=== PATIENT | male | born 1970 | race Caucasian/White ===

== ENCOUNTER 2021-02-07 18:28 | Emergency (ER) | payer MEDICARE ==
--- NOTE | 2021-02-07 18:57 | ERPHSYRPT ---
- History of Present Illness Source: patient Exam Limitations: other (Poor historian) Patient Subjective Stated Complaint: SOB Triage Nursing Assessment: Patient brought back to ED via w/c and transferred self to bed. Patient A+O X 3. Patient's skin pink, warm and dry. Patient complains of SOB, vomiting, cough and headache for one week. Patient's lungs clear a/p brice. Physician History: 50 yo wm w productive cough x9 days. Pt has had nausea wo vomiting/fever/diarrhea/melena/hematochezia. He has some mid-sternal chest pain which is worse w deep breaths. Timing/Duration: other (9days) Cough Quality/Degree: productive cough Possible Cause: occasional episodes Modifying Factors: Improves With: coughing Associated Symptoms: chest pain/soreness, cough, nasal congestion, shortness of breath, No fever, No chills, No dizziness, No earache, No facial pain, No headache, No lightheadedness, No muscle aches, No nasal drainage, No sinus infection, No sore throat, No wheezing Allergies/Adverse Reactions: codeine Allergy (Severe, Verified 02/07/21 18:30) Hives naproxen Allergy (Intermediate, Verified 02/07/21 18:30) Rash aspirin Adverse Reaction (Verified 02/07/21 18:30) Home Medications: Propranolol HCl [Propranolol HCl ER] 120 mg PO DAILY 05/12/16 [History] SUMAtriptan succinate [Imitrex] 100 mg PO UD 05/12/16 [History] Hx Tetanus, Diphtheria Vaccination/Date Given: Yes (2011) Hx Influenza Vaccination/Date Given: No Hx Pneumococcal Vaccination/Date Given: No Immunizations Up to Date: Yes Travel Risk - International Travel Have you traveled outside of the country in past 3 weeks: No - Coronavirus Screening Are you exhibiting any of the following symptoms?: Yes Symptoms: Cough: New Onset, Shortness of Breath Close contact with a COVID-19 positive Pt in past 14-21 Days: No - Vaccine Status Have you recieved a Covid-19 vaccination: Yes [employer] Inspector: Moderna - Vaccination Dates Date of 2cond Vaccination (if applicable): n/a - Review of Systems Constitutional: No Symptoms, Fatigue, Lethargy Eyes: No Symptoms Ears, Nose, & Throat: No Symptoms, Nose Congestion, Nose Discharge Respiratory: No Symptoms, Cough, Dyspnea on Exertion ([place]) Cardiac: No Symptoms, Chest Pain Abdominal/Gastrointestinal: No Symptoms, Nausea Genitourinary Symptoms: No Symptoms Musculoskeletal: No Symptoms Skin: No Symptoms Neurological: No Symptoms Psychological: No Symptoms Endocrine: No Symptoms Hematologic/Lymphatic: No Symptoms Immunological/Allergic: No Symptoms - Past Medical History Pertinent Past Medical History: Yes Cardiac History: Hypertension, Other Musculoskeletal History: Other Other Medical History: sciatica - Past Surgical History Past Surgical History: No - Social History Smoking Status: Never smoker Exposure to second hand smoke: No Drug Use: none Patient Lives Alone: No Significant Family History: no pertinent family hx - Nursing Vital Signs Nursing Vital Signs: Initial Vital Signs Temperature 98.4 F 02/07/21 18:32 Pulse Rate 95 H 02/07/21 18:32 Respiratory Rate 14 02/07/21 18:32 Blood Pressure 151/110 02/07/21 18:32 O2 Sat by Pulse Oximetry 99 02/07/21 18:32 Pain Scale Pain Intensity 0 - Physical Exam General Appearance: no apparent distress Eye Exam: PERRL/EOMI, eyes nml inspection Ears, Nose, Throat Exam: normal ENT inspection, TMs normal, pharynx normal, moist mucous membranes Neck Exam: normal inspection, non-tender, supple, full range of motion, No meningismus, No mass, No Brudzinski, No Kernig's Respiratory Exam: normal breath sounds, lungs clear, airway intact, No chest tenderness, No respiratory distress Cardiovascular Exam: tachycardia (Mild), No murmur Gastrointestinal/Abdomen Exam: soft, normal bowel sounds, No tenderness, No distention Back Exam: normal inspection, normal range of motion, No CVA tenderness, No vertebral tenderness Extremity Exam: normal inspection, normal range of motion Neurologic Exam: alert, oriented x 3, cooperative, equal opportunity director II-XII nml as tested, normal mood/affect, nml cerebellar function, nml station & gait, sensation nml, No motor deficits, No sensory deficit Skin Exam: normal color Lymphatic Exam: adenopathy SpO2 Interpretation: normal SpO2: 99 O2 Delivery: Room Air - Course EKG Interpreted by Me: RATE (NSR/R95/Twave inversion V3-V5/ST depression V3- V5/Normal QT-QTc) - Radiology Exams Chest X-ray Interpretation: Interpreted by me (CXR-Nothing acute) - CT Exams Chest CT Interpretation: Discussed w/radiologist (B patchy airspace opacities) Ordered Tests: Active Orders 24 hr Category Date Time Status EKG-ER Only STAT Care 02/07/21 18:51 Completed IV Insertion STAT Care 02/07/21 18:51 Completed CHEST 1 VIEW (PORTABLE) Stat Exams 02/07/21 18:51 Taken CHEST WITHOUT CONTRAST [CT] Stat Exams 02/07/21 19:28 Taken CBC W DIFF Stat Lab 02/07/21 18:45 Completed CMP Stat Lab 02/07/21 18:45 Completed D-DIMER QUANTITATIVE Stat Lab 02/07/21 18:45 Completed NT PRO BNP Stat Lab 02/07/21 18:45 Completed PROTIME WITH INR Stat Lab 02/07/21 18:45 Completed PTT Stat Lab 02/07/21 18:45 Completed TROPONIN Q3H Lab 02/07/21 18:45 Completed TROPONIN Q3H Lab 02/07/21 20:54 Completed Medication Summary Discontinued Medications Generic Name Dose Route Start Last Admin Trade Name Freq PRN Reason Stop Dose Admin Potassium Chloride 40 meq 02/07/21 20:19 02/07/21 20:22 Klor Con 10 Meq PO 02/07/21 20:20 40 meq STAT ONE Administration Potassium Chloride Confirm 02/07/21 20:22 Klor Con 10 Meq Administered 02/07/21 20:23 Dose 40 meq PO .STK-MED ONE Lab/Rad Data: Laboratory Result Diagrams 02/07/21 18:45 02/07/21 18:45 Laboratory Results 02/07/21 02/07/21 02/07/21 Range/Units 20:54 18:45 18:45 WBC (4.0-10.5) K/mm3 RBC (4.1-5.6) M/mm3 Hgb (12.5-18.0) gm/dl Hct (42-50) % MCV (78-100) fl MCH (26-32) pg MCHC (32-36) g/dl RDW (11.5-14.0) % Plt Count (150-450) K/mm3 MPV (7.5-11.0) fl Gran % (36.0-66.0) % Eos # (Auto) (0-0.5) Absolute Lymphs (auto) (1.0-4.6) Absolute Monos (auto) (0.0-1.3) Lymphocytes % (24.0-44.0) % Monocytes % (0.0-12.0) % Eosinophils % (0.00-5.0) % Basophils % (0.0-0.4) % Absolute Granulocytes (1.4-6.9) Basophils # (0-0.4) PT 12.9 H (8.83-12.87) SECONDS INR 1.14 (0.8-3.0) APTT 28.3 (24.1-36.1) SECONDS D-Dimer 426 (215-500) ng/mL Sodium (137-145) mmol/L Potassium (3.5-5.1) mmol/L Chloride (98-107) mmol/L Carbon Dioxide (22-30) mmol/L Anion Gap (5-15) MEQ/L BUN (9-20) mg/dL Creatinine (0.66-1.25) mg/dL Estimated GFR ML/MIN Glucose (74-106) mg/dL Calcium (8.4-10.2) mg/dL Total Bilirubin (0.2-1.3) mg/dL AST (17-59) U/L ALT (0-50) U/L Alkaline Phosphatase (38-126) U/L Troponin I < 0.012 < 0.012 (0.000-0.034) ng/mL NT-Pro-B Natriuret Pep (0-450) pg/mL Serum Total Protein (6.3-8.2) g/dL Albumin (3.5-5.0) g/dL Slides for Path Review 02/07/21 02/07/21 Range/Units 18:45 18:45 WBC 6.7 (4.0-10.5) K/mm3 RBC 4.94 (4.1-5.6) M/mm3 Hgb 16.1 (12.5-18.0) gm/dl Hct 43.6 (42-50) % MCV 88.3 (78-100) fl MCH 32.6 H (26-32) pg MCHC 36.9 H (32-36) g/dl RDW 13.2 (11.5-14.0) % Plt Count 127 L (150-450) K/mm3 MPV 11.1 H (7.5-11.0) fl Gran % 70.4 H (36.0-66.0) % Eos # (Auto) 0.03 (0-0.5) Absolute Lymphs (auto) 1.48 (1.0-4.6) Absolute Monos (auto) 0.48 (0.0-1.3) Lymphocytes % 22.0 L (24.0-44.0) % Monocytes % 7.1 (0.0-12.0) % Eosinophils % 0.4 (0.00-5.0) % Basophils % 0.1 (0.0-0.4) % Absolute Granulocytes 4.74 (1.4-6.9) Basophils # 0.01 (0-0.4) PT (8.83-12.87) SECONDS INR (0.8-3.0) APTT (24.1-36.1) SECONDS D-Dimer (215-500) ng/mL Sodium 138 (137-145) mmol/L Potassium 2.9 L* (3.5-5.1) mmol/L Chloride 108 H (98-107) mmol/L Carbon Dioxide 20 L (22-30) mmol/L Anion Gap 13.6 (5-15) MEQ/L BUN 7 L (9-20) mg/dL Creatinine 1.36 H (0.66-1.25) mg/dL Estimated GFR 59.4 ML/MIN Glucose 119 H (74-106) mg/dL Calcium 9.3 (8.4-10.2) mg/dL Total Bilirubin 0.90 (0.2-1.3) mg/dL AST 59 (17-59) U/L ALT 57 H (0-50) U/L Alkaline Phosphatase 123 (38-126) U/L Troponin I (0.000-0.034) ng/mL NT-Pro-B Natriuret Pep 36.8 (0-450) pg/mL Serum Total Protein 7.3 (6.3-8.2) g/dL Albumin 4.3 (3.5-5.0) g/dL Slides for Path Review YES - Progress Progress: improved Progress Note: 02/07/21 21:25 Pt most likely has CV19 but unable to do rapid test since pt not requiring admission. Will do send out CV19 test and start doxycycline until CV19 test is back. Counseled pt/family regarding: lab results, diagnosis, need for follow-up, rad results - Departure Departure Disposition: Home Clinical Impression: COVID-19 determined by clinical diagnostic criteria, Hypokalemia Condition: Stable Critical Care Time: No Referrals: BOYD TIMMONS [Primary Care Provider] - Instructions: Shortness of Breath (Dyspnea) (DC) Additional Instructions: Follow up with family MD in 1-2 days Start vitaminD 10,000 units daily Get a pulse oximeter and monitor oxygen saturation 2-3 times a day. Return to ER if saturation consistently below 92% Start doxycycline and stop if Covid19 test negative Prescriptions: Doxycycline Monohydrate 100 mg PO BID 10 Days #20 tablet Potassium Chloride [Klor-Con M20] 40 meq PO BID 7 Days #14 [email or web address]
[2021-02-07 19:00] LABS: Absolute Neutrophil Ct (ANC) 4.74 (1.4-6.9); BASOPHIL % 0.1 % (0.0-0.4); Basophil (Absolute #) 0.01 (0-0.4); Eosinophil % 0.4 % (0.00-5.0); Eosinophil (Absolute #) 0.03 (0-0.5); Hematocrit 43.6 % (42-50); Hemoglobin 16.1 gm/dl (12.5-18.0); INR 1.14 (0.8-3.0); Lymphocyte (Absolute #) 1.48 (1.0-4.6); Mean Cell Volume 88.3 fl (78-100); Mean Corpuscular Hemoglobin 32.6 pg (26-32); Mean Corpuscular Hgb Concent. 36.9 g/dl (32-36); Mean Platelet Volume 11.1 fl (7.5-11.0); Monocyte (Absolute #) 0.48 (0.0-1.3); Monocytes % 7.1 % (0.0-12.0); Neutrophil % 70.4 % (36.0-66.0); PROTIME 12.9 SECONDS (8.83-12.87); Platelet Count 127 K/mm3 (150-450); Red Blood Count 4.94 M/mm3 (4.1-5.6); Red Cell Distribution Width 13.2 % (11.5-14.0); White Blood Count 6.7 K/mm3 (4.0-10.5)
[2021-02-07 19:03] LABS: PTT 28.3 SECONDS (24.1-36.1)
[2021-02-07 19:13] LABS: ALBUMIN 4.3 g/dL (3.5-5.0); ANION GAP 13.6 MEQ/L (5-15); BILIRUBIN,TOTAL 0.9 mg/dL (0.2-1.3); Calcium 9.3 mg/dL (8.4-10.2); Creatinine 1 1.36 mg/dL (0.66-1.25); EST GLOMERULAR FILTRATION RATE 59.4 ML/MIN; NT PRO BNP 36.8 pg/mL (0-450); Total Protein 7.3 g/dL (6.3-8.2)
[2021-02-07 19:18] LABS: Potassium 2.9 mmol/L (3.5-5.1)
[2021-02-07] MEDS ORDERED: Klor Con 10 MEQ PO ONE ×2 (20:19→20:22)
[2021-02-07 20:24] VITALS: O2SAT 99
[2021-02-07 21:31] VITALS: BP 133/91; PULSE 95
[2021-02-07 22:05] LABS: Slide Review 1 YES
--- NOTE | 2021-02-08 08:41 | XRAY ---
Indication: Cough 9 days. Comparison: None Portable chest demonstrates right infrahilar airspace opacity without consolidation/large effusion. Remaining part, left lung, and bony thorax normal. Comment: Right lung opacity not reported by interpreting ER clinician.
--- NOTE | 2021-02-08 08:43 | XRAY ---
Indication: Chest pain, dyspnea, nausea, vomiting, bodyaches, and headaches 9 days. Multiple contiguous axial images obtained through the chest without contrast. Comparison: None Lungs demonstrate mild patchy bilateral peripheral round airspace opacities greatest in the right lower lobe. No consolidation or effusion. Heart is not enlarged. Aorta is normal in course and caliber. No pathologic mediastinal lymphadenopathy. Bony thorax intact. Limited upper abdomen demonstrates 1.5 cm right upper renal cortical cyst and cholecystectomy clips. Impression: 1. Bilateral peripheral round airspace opacities. Commonly reported imaging features of Covid 19 pneumonia are present. Other processes such as influenza pneumonia and organizing pneumonia, as can be seen with drug toxicity and connective tissue disease, can cause a similar imaging pattern. 2. Right renal cyst.
== END 2021-02-07 21:50 | disposition home or self-care (01) ==
LOC: ED 18:28
DX: U07.1 COVID-19 (principal); E87.6 Hypokalemia
CPT/HCPCS: 36000; 36415; 71045; 71250; 80053; 83880; 84484; 85025; 85379; 85610; 85730; 93005; 99284; U0003; A9270-GY

== ENCOUNTER 2023-02-13 08:45 | Day surgery (SDC) | payer MEDICARE ==
[2023-02-13] MEDS ORDERED: LIDOCAINE HCL 1% 50 MG/5 ML VL PF IJ ONE (08:46)
[2023-02-13] MEDS ORDERED: Depo-Medrol 40 MG/ML IM ONE (08:46)
[2023-02-13] MEDS ORDERED: Sodium Chloride 0.9(Preservative Free) 10 ML IJ ONE (08:46)
[2023-02-13] MEDS ORDERED: Versed 2 MG/2 ML Injection ONE ×2 (10:15→10:17)
--- NOTE | 2023-02-13 12:28 | XRAY ---
Indication: Lumbar RENY. Intraoperative fluoroscopy provided for 19 seconds. 2 digital spot images submitted for interpretation demonstrates posterior needle tip projecting just posterior to presumed L3-L4 interspace. Small amount of contrast injected for needle tip placement. Correlate with intraoperative findings/report.
--- NOTE | 2023-02-13 12:40 | XRAY ---
19 seconds of fluoroscopy was used in surgery for a lumbar RENY.
[2023-02-13] MEDS ORDERED: Lactated Ringers 1,000 ML IV ONE (13:52)
== END 2023-02-13 10:45 | disposition home or self-care (01) ==
LOC: SDC-PAIN 08:45
PROVIDERS: ATTEND Psychiatry & Neurology Pain Medicine
DX: M54.16 Radiculopathy, lumbar region (principal); Z79.899 Other long term (current) drug therapy
CPT/HCPCS: 62323; 72100; 77003; 93005; J1030; J2001; J2250; Q9966

== ENCOUNTER 2023-04-10 11:56 | Day surgery (SDC) | payer MEDICARE ==
[2023-04-10] MEDS ORDERED: Depo-Medrol 40 MG/ML IM ONE (11:57)
[2023-04-10] MEDS ORDERED: BUPIVACAINE 0.5% VIAL IJ ONE (11:57)
[2023-04-10] MEDS ORDERED: DIPRIVAN 200 MG/20 ML IV ONE (14:46)
[2023-04-10] MEDS ORDERED: Lactated Ringers 1,000 ML IV ONE (15:06)
--- NOTE | 2023-04-10 16:41 | XRAY ---
Indication: Left shoulder and subacromial bursa injection. Intraoperative fluoroscopy provided for 17 seconds. 2 digital spot image submitted for interpretation demonstrates needle tip projecting over the left glenohumeral joint superiorly. Second needle tip subacromial. Small amount of contrast injected for both needle tip placement. Correlate with intraoperative findings/report.
--- NOTE | 2023-04-10 16:41 | XRAY ---
Indication: Right shoulder and subacromial bursa injection. Intraoperative fluoroscopy provided for 15 seconds. 2 digital spot image submitted for interpretation demonstrates needle tip projecting over the right glenohumeral joint superiorly. Second needle tip subacromial. Small amount of contrast injected for both needle tip placement. Correlate with intraoperative findings/report.
--- NOTE | 2023-04-10 16:57 | XRAY ---
17 seconds of fluoroscopy was used in surgery for a left intra-articular shoulder and left subacromial bursa injection.
--- NOTE | 2023-04-10 16:57 | XRAY ---
15 seconds of fluoroscopy was used in surgery for a right intra-articular shoulder and right subacromial bursa injection.
== END 2023-04-10 15:15 | disposition home or self-care (01) ==
LOC: SDC-PAIN 11:56
PROVIDERS: ATTEND Psychiatry & Neurology Pain Medicine
DX: M19.012 Primary osteoarthritis, left shoulder (principal); M19.011 Primary osteoarthritis, right shoulder; M75.52 Bursitis of left shoulder; M75.51 Bursitis of right shoulder; Z79.899 Other long term (current) drug therapy
CPT/HCPCS: 20610; 73030; 77002; J1030; J2704; Q9966